=== PATIENT | female | born 1970 | race Caucasian/White ===

== ENCOUNTER 2019-09-04 09:17 | Outpatient (CLI) | payer OTHER, SELFPAY ==
[2019-09-06 03:13] LABS: COVID-19 RT-PCR Result NEGATIVE (Negative)
== END 2019-09-04 09:37 ==
PROVIDERS: PCP Physician Assistant; Visit Provider Family Medicine
DX: R06.00 Dyspnea, unspecified (principal)
CPT/HCPCS: U0003

== ENCOUNTER 2019-09-07 03:16 | Outpatient (CLI) | payer OTHER, SELFPAY ==
[2019-09-07] MEDS: Albuterol HFA 18 GM 200 PUFF INH IH (09:31)
[2019-09-07] MEDS: Inhaler, Assist Device 1 EACH MC (09:31)
--- NOTE | 2019-09-07 11:52 | W.PFT ---
Date of service: 09/07/19 Time of Service: 08:06 Pulmonary Function Test Result Interpretation Spirometry: Spirometry shows mild obstructive airways disease with some, but not significant bronchodilator response Lung Volumes: Lung volumes show no evidence of restriction Diffusion Capacity: Diffusion capacity is normal Airway Pressure: Airways resistance is normal Impression Mild obstructive airways disease with some but not significant bronchodilator response. Clinical correlation recommended Clinical Correlation therefore is recommended.
== END 2019-09-07 03:36 ==
PROVIDERS: PCP Physician Assistant; Visit Provider Internal Medicine
DX: R06.09 Other forms of dyspnea (principal)
CPT/HCPCS: 94060; 94726; 94729